=== PATIENT | female | born 1965 | race Caucasian/White ===

== ENCOUNTER 2017-11-05 08:47 | Emergency (ER) | payer OTHER ==
[2017-11-05] MEDS: OXYCODONE/ACETAMINOPHEN (5/325) TAB PO (10:01)
[2017-11-05 10:32] LABS: ADD MAN DIFF? NO
[2017-11-05 10:43] LABS: WHITE BLOOD COUNT 4.8 10^3/ul (4.8-10.8)
[2017-11-05 10:43] LABS: BASOPHIL # 0.1 10^3/ul (0.0-0.1); EOSINOPHILS # 0.1 10^3/ul (0.0-0.5); EOSINOPHILS % 2.9 % (0.0-7.0); HEMATOCRIT 40.6 % (37.0-47.0); HEMOGLOBIN 12.3 g/dl (12.0-16.0); LYMPHOCYTES # 1.2 10^3/ul (0.8-2.9); LYMPHOCYTES % 24.2 % (15.0-51.0); MEAN CORPUSCULAR HEMOGLOBIN 26.1 pg (29.0-33.0); MEAN CORPUSCULAR HGB CONC 30.3 g/dl (32.0-37.0); MEAN CORPUSCULAR VOLUME 86.2 fl (82.0-101.0); MEAN PLATELET VOLUME 11.2 fl (7.4-10.4); MONOCYTE # 0.7 10^3/ul (0.3-0.9); MONOCYTES % 13.4 % (0.0-11.0); NEUTROPHIL # 2.8 10^3/ul (1.6-7.5); NEUTROPHILS % 57.7 % (39.0-77.0); PLATELET COUNT 681 10^3/UL (140-415); RED BLOOD COUNT 4.71 10^6/ul (4.20-5.40); RED CELL DISTRIBUTION WIDTH 18.1 % (11.5-14.5)
[2017-11-05 10:48] LABS: ADD UMIC YES; UR ASCORBIC ACID 40 mg/dL (NEGATIVE); UR BACTERIA FEW /HPF (NONE SEEN); UR BILIRUBIN (Dip) NEGATIVE (NEGATIVE); UR BLOOD (Dip) 3+ mg/dL (NEGATIVE); UR CALCIUM OXALATE CRYSTAL MANY /HPF (NONE SEEN); UR CLARITY CLOUDY (CLEAR); UR COLOR YELLOW (YELLOW); UR GLUCOSE (Dip) NEGATIVE (NEGATIVE); UR KETONES (Dip) NEGATIVE (NEGATIVE); UR LEUKOCYTE ESTERASE (Dip) 3+ Leu/ul (NEGATIVE); UR NITRITE (Dip) NEGATIVE (NEGATIVE); UR RBC > 182 /HPF (0-5); UR SPECIFIC GRAVITY (Dip) 1.014 (1.003-1.030); UR TOTAL PROTEIN (Dip) 2+ mg/dl (NEGATIVE); UR UROBILINOGEN (Dip) NEGATIVE (NEGATIVE); UR WBC > 182 /HPF (0-5)
[2017-11-05 10:53] LABS: ALANINE AMINOTRANSFERASE 56 IU/L (13-69); ALBUMIN 4.2 g/dl (3.3-4.9); ALKALINE PHOSPHATASE 111 IU/L (42-121); ANION GAP 15 (8-16); ASPARTATE AMINO TRANSFERASE 32 IU/L (15-46); BLOOD UREA NITROGEN 17 mg/dl (7-20); CALCIUM 9.8 mg/dl (8.4-10.2); CARBON DIOXIDE 30 mmol/L (21-31); CHLORIDE 102 mmol/L (97-110); CREATININE 0.69 mg/dl (0.44-1.00); GLUCOSE 77 mg/dl (70-220); LIPASE 177 U/L (23-300); POTASSIUM 5.2 mmol/L (3.5-5.1); SODIUM 142 mmol/L (135-144)
[2017-11-05] MEDS: CEFTRIAXONE 1 GM INJ IM (11:04)
== END 2017-11-05 11:29 | disposition home or self-care (01) ==
LOC: E/R 08:47
DX: N30.01 Acute cystitis with hematuria (principal); C56.9 Malignant neoplasm of unspecified ovary; I26.99 Other pulmonary embolism without acute cor pulmonale; Y73.2 Prosthetic and other implants, materials and accessory gastroenterology and urology devices associated with adverse incidents; Z79.01 Long term (current) use of anticoagulants
CPT/HCPCS: 36415; 80053; 81001; 83690; 85025; 96372; 99284-25

== ENCOUNTER 2017-12-14 10:37 | Emergency (ER) | payer SELFPAY, OTHER | END 2017-12-14 17:26 | disposition left against medical advice (07) | LOC: E/R 10:37 | DX: Z53.21 Procedure and treatment not carried out due to patient leaving prior to being seen by health care provider (principal) ==

== ENCOUNTER 2017-12-15 07:07 | Observation (INO) | payer OTHER ==
[2017-12-15] MEDS: ONDANSETRON 4 MG INJ IV ×2 (10:08→16:08)
[2017-12-15] MEDS: morphine 4 MG/ML VIAL IV (10:09)
[2017-12-15] MEDS: SOD CHLORIDE 0.9% 1,000 ML IV (10:09)
[2017-12-15 10:37] LABS: ADD MAN DIFF? NO
[2017-12-15 10:40] LABS: BASOPHILS % 0.5 % (0.0-2.0); EOSINOPHILS # 0.1 10^3/ul (0.0-0.5); EOSINOPHILS % 1.7 % (0.0-7.0); HEMATOCRIT 35.5 % (37.0-47.0); HEMOGLOBIN 11.2 g/dl (12.0-16.0); LYMPHOCYTES # 0.9 10^3/ul (0.8-2.9); LYMPHOCYTES % 14.7 % (15.0-51.0); MEAN CORPUSCULAR HEMOGLOBIN 26.1 pg (29.0-33.0); MEAN CORPUSCULAR HGB CONC 31.5 g/dl (32.0-37.0); MEAN CORPUSCULAR VOLUME 82.8 fl (82.0-101.0); MEAN PLATELET VOLUME 11.8 fl (7.4-10.4); MONOCYTE # 0.8 10^3/ul (0.3-0.9); MONOCYTES % 13.4 % (0.0-11.0); NEUTROPHIL # 4.1 10^3/ul (1.6-7.5); PLATELET COUNT 602 10^3/UL (140-415); RED BLOOD COUNT 4.29 10^6/ul (4.20-5.40); RED CELL DISTRIBUTION WIDTH 16.9 % (11.5-14.5)
[2017-12-15 10:57] LABS: ALANINE AMINOTRANSFERASE 65 IU/L (13-69); ALBUMIN 3.7 g/dl (3.3-4.9); ALBUMIN/GLOBULIN RATIO 1.02; ALKALINE PHOSPHATASE 112 IU/L (42-121); AMYLASE 91 U/L (11-123); ANION GAP 13 (8-16); ASPARTATE AMINO TRANSFERASE 37 IU/L (15-46); BLOOD UREA NITROGEN 17 mg/dl (7-20); CALCIUM 9.4 mg/dl (8.4-10.2); CARBON DIOXIDE 28 mmol/L (21-31); CHLORIDE 106 mmol/L (97-110); CREATININE 0.81 mg/dl (0.44-1.00); GLUCOSE 91 mg/dl (70-220); LIPASE 120 U/L (23-300); POTASSIUM 4.5 mmol/L (3.5-5.1); SODIUM 142 mmol/L (135-144); TOTAL PROTEIN 7.3 g/dl (6.1-8.1)
[2017-12-15 10:59] LABS: INR 0.82; PROTIME 11.3 Sec (11.9-14.9); PT RATIO 0.9
[2017-12-15 11:00] LABS: PARTIAL THROMBOPLASTIN TIME 27.1 Sec (25.0-35.0)
[2017-12-15 11:16] LABS: TROPONIN-I < 0.012 ng/ml (0.00-0.12)
[2017-12-15] MEDS: IOHEXOL 300MG/ML 150 ML BTL (11:48)
[2017-12-15] MEDS: SOD CHLORIDE 0.9% 250 ML (11:49)
[2017-12-15] MEDS: IOHEXOL 100 ML (14:52)
[2017-12-15] MEDS: SOD CHLORIDE 0.9% 100 ML (14:52)
[2017-12-15] MEDS ORDERED: ONDANSETRON 4 MG INJ IV ×2 (16:00→18:00)
[2017-12-15] MEDS ORDERED: ACETAMINOPHEN 325 MG TAB PO ×2 (16:00→18:00)
[2017-12-15 16:06] LABS: ADD UMIC YES; UR ASCORBIC ACID NEGATIVE (NEGATIVE); UR BACTERIA MODERATE /HPF (NONE SEEN); UR BILIRUBIN (Dip) NEGATIVE (NEGATIVE); UR BLOOD (Dip) 3+ mg/dL (NEGATIVE); UR CLARITY CLOUDY (CLEAR); UR COLOR YELLOW (YELLOW); UR GLUCOSE (Dip) NEGATIVE (NEGATIVE); UR KETONES (Dip) NEGATIVE (NEGATIVE); UR LEUKOCYTE ESTERASE (Dip) 3+ Leu/ul (NEGATIVE); UR MUCUS FEW /HPF (NONE SEEN); UR NITRITE (Dip) NEGATIVE (NEGATIVE); UR RBC > 182 /HPF (0-5); UR SPECIFIC GRAVITY (Dip) 1.055 (1.003-1.030); UR TOTAL PROTEIN (Dip) 2+ mg/dl (NEGATIVE); UR UROBILINOGEN (Dip) NEGATIVE (NEGATIVE); UR WBC > 182 /HPF (0-5)
[2017-12-15] MEDS: HYDROmorphONE 1 MG/ML SYG IV (16:08)
[2017-12-15] MEDS ORDERED: NACL 0.9% 3 ML SYG IV (18:00)
[2017-12-15] MEDS ORDERED: ZOLPIDEM 5 MG TAB PO (18:00)
[2017-12-15] MEDS: CEFTRIAXONE 1 GM/50 ML (PMX) 50 ML IVPB (18:43)
[2017-12-15] MEDS: APIXABAN 5 MG TABLET PO (21:41)
[2017-12-16] MEDS: morphine 2 MG INJ IV ×2 (04:34→08:44)
[2017-12-16 05:30] LABS: ADD MAN DIFF? NO
[2017-12-16 05:42] LABS: WHITE BLOOD COUNT 6.5 10^3/ul (4.8-10.8)
[2017-12-16 05:42] LABS: BASOPHILS % 0.6 % (0.0-2.0); EOSINOPHILS # 0.1 10^3/ul (0.0-0.5); EOSINOPHILS % 1.2 % (0.0-7.0); HEMATOCRIT 32.7 % (37.0-47.0); HEMOGLOBIN 10.2 g/dl (12.0-16.0); LYMPHOCYTES # 0.8 10^3/ul (0.8-2.9); LYMPHOCYTES % 12.3 % (15.0-51.0); MEAN CORPUSCULAR HEMOGLOBIN 25.8 pg (29.0-33.0); MEAN CORPUSCULAR HGB CONC 31.2 g/dl (32.0-37.0); MEAN CORPUSCULAR VOLUME 82.8 fl (82.0-101.0); MEAN PLATELET VOLUME 11.8 fl (7.4-10.4); MONOCYTE # 0.8 10^3/ul (0.3-0.9); MONOCYTES % 12.1 % (0.0-11.0); NEUTROPHIL # 4.8 10^3/ul (1.6-7.5); PLATELET COUNT 556 10^3/UL (140-415); RED BLOOD COUNT 3.95 10^6/ul (4.20-5.40); RED CELL DISTRIBUTION WIDTH 16.9 % (11.5-14.5)
[2017-12-16] MEDS: PANTOPRAZOLE (EC) 40 MG TAB PO (05:46)
[2017-12-16] MEDS: MAGNESIUM HYDROXIDE 30ML CUP PO (05:46)
[2017-12-16] MEDS: DOCUSATE SODIUM 100 MG CAP PO (05:47)
[2017-12-16 06:43] LABS: ANION GAP 13 (8-16)
[2017-12-16 07:03] LABS: BLOOD UREA NITROGEN 14 mg/dl (7-20); CALCIUM 9.2 mg/dl (8.4-10.2); CARBON DIOXIDE 27 mmol/L (21-31); CHLORIDE 106 mmol/L (97-110); CREATININE 0.76 mg/dl (0.44-1.00); GLUCOSE 69 mg/dl (70-220); MAGNESIUM 1.6 mg/dl (1.7-2.5); PHOSPHORUS 4.5 mg/dl (2.5-4.9); POTASSIUM 4.5 mmol/L (3.5-5.1); SODIUM 141 mmol/L (135-144)
[2017-12-16] MEDS: QUETIAPINE 25 MG TAB PO (08:42)
[2017-12-16] MEDS: APIXABAN 5 MG TABLET PO (08:42)
[2017-12-16] MEDS: MAGNESIUM OXIDE 400 MG TAB PO (10:39)
[2017-12-16] MEDS: HYDROCODONE/APAP (5/325) TAB PO (10:45)
== END 2017-12-16 13:50 | disposition home or self-care (01) ==
LOC: E/R 07:07 → MS1 15:56
DX: C56.9 Malignant neoplasm of unspecified ovary (principal); C78.6 Secondary malignant neoplasm of retroperitoneum and peritoneum; R10.9 Unspecified abdominal pain; K80.20 Calculus of gallbladder without cholecystitis without obstruction; N13.30 Unspecified hydronephrosis; Z86.711 Personal history of pulmonary embolism; Z86.61 Personal history of infections of the central nervous system
CPT/HCPCS: 71260; 71275; 74177; 76705; 80048; 80053; 81001; 82150; 83690; 83735; 84100; 84484; 85025; 85610; 85730; 87040; 87086; 93005; 96374; 96375; 96376; 99285-25

== ENCOUNTER 2018-02-24 08:04 | Inpatient (IN) | payer OTHER ==
[2018-02-24] MEDS: SODIUM CHLORIDE 0.9% 1L BAG IV* (08:52)
[2018-02-24] MEDS: CEFEPIME 2GM/50 ML (PMX) 50 ML IVPB (08:52)
[2018-02-24 08:59] LABS: WHITE BLOOD COUNT 9.6 10^3/ul (4.8-10.8)
[2018-02-24 08:59] LABS: HEMOGLOBIN 13.4 g/dl (12.0-16.0); MEAN CORPUSCULAR HEMOGLOBIN 25.5 pg (29.0-33.0); MEAN CORPUSCULAR HGB CONC 32.7 g/dl (32.0-37.0); MEAN CORPUSCULAR VOLUME 77.9 fl (82.0-101.0); NUCLEATED RED BLOOD CELLS% 0.5 /100WBC (0.0-0.0); PLATELET COUNT 315 10^3/UL (140-415); RED BLOOD COUNT 5.26 10^6/ul (4.20-5.40); RED CELL DISTRIBUTION WIDTH 19.3 % (11.5-14.5)
[2018-02-24 09:05] LABS: ADD MAN DIFF? YES; POSITIVE DIFF @See below
[2018-02-24] MEDS: PANTOPRAZOLE IV 80 MG in SOD CHLORIDE 0.9% 100 ML IV (09:14)
[2018-02-24] MEDS: PANTOPRAZOLE IV 80 MG in SOD CHLORIDE 0.9% 100 ML IVPB (09:14)
[2018-02-24 09:18] LABS: ALANINE AMINOTRANSFERASE 604 IU/L (13-69); ALBUMIN 4.4 g/dl (3.3-4.9); ALBUMIN/GLOBULIN RATIO 0.97; ALKALINE PHOSPHATASE 427 IU/L (42-121); ANION GAP 20 (8-16); ASPARTATE AMINO TRANSFERASE 410 IU/L (15-46); BILIRUBIN,INDIRECT 0.3 mg/dl (0-1.1); BILIRUBIN,TOTAL 0.3 mg/dl (0.2-1.3); BLOOD UREA NITROGEN 116 mg/dl (7-20); CALCIUM 8.9 mg/dl (8.4-10.2); CARBON DIOXIDE 26 mmol/L (21-31); CHLORIDE 101 mmol/L (97-110); CREATININE 0.93 mg/dl (0.44-1.00); SODIUM 139 mmol/L (135-144); TOTAL PROTEIN 8.9 g/dl (6.1-8.1)
[2018-02-24 09:25] LABS: ADD UMIC YES; POTASSIUM 8.2 mmol/L (3.5-5.1); UR AMORPHOUS CRYSTAL FEW /HPF (NONE SEEN); UR ASCORBIC ACID 20 mg/dL (NEGATIVE); UR BACTERIA FEW /HPF (NONE SEEN); UR BILIRUBIN (Dip) NEGATIVE (NEGATIVE); UR BLOOD (Dip) 3+ mg/dL (NEGATIVE); UR CLARITY CLOUDY (CLEAR); UR COLOR YELLOW (YELLOW); UR GLUCOSE (Dip) NEGATIVE (NEGATIVE); UR KETONES (Dip) NEGATIVE (NEGATIVE); UR LEUKOCYTE ESTERASE (Dip) 3+ Leu/ul (NEGATIVE); UR MUCUS FEW /HPF (NONE SEEN); UR NITRITE (Dip) NEGATIVE (NEGATIVE); UR RBC > 182 /HPF (0-5); UR SPECIFIC GRAVITY (Dip) 1.013 (1.003-1.030); UR TOTAL PROTEIN (Dip) 1+ mg/dl (NEGATIVE); UR UROBILINOGEN (Dip) NEGATIVE (NEGATIVE); UR WBC > 182 /HPF (0-5)
[2018-02-24 09:26] LABS: GLUCOSE 21 mg/dl (70-220)
[2018-02-24] MEDS ORDERED: DEXTROSE 50% 50 ML SYRINGE (09:28)
[2018-02-24 09:29] LABS: TROPONIN-I 0.029 ng/ml (0.00-0.12)
[2018-02-24] MEDS: VANCOMYCIN 1 GM (PMX) 250 ML IVPB (09:31)
[2018-02-24 09:50] LABS: ANISOCYTOSIS 2+ (0-0); BAND NEUTROPHILS #M 2.7 10^3/ul (0.0-0.6); BAND NEUTROPHILS % (M) 29 % (0-4); ERYTHROBLAST% (NRBC) (M) 2 % (0-0); GIANT THROMBO% (M) 3 % (0-0); LYMPHOCYTES #M 0.9 10^3/ul (0.8-2.9); LYMPHOCYTES % (M) 10 % (15-51); METAMYELOCYTES %M 1 % (0-0); MONOCYTE #M 0.3 10^3/ul (0.3-0.9); MONOCYTES % (M) 4 % (0-11); MYELOCYTES #M 0.1 10^3/ul (0.0-0.0); MYELOCYTES % (M) 2 % (0-0); PLATELET ESTIMATE NORMAL; POIKILOCYTOSIS 3+ (0-0); POLYCHROMASIA 3+ (0-0); SEG NEUT #M 5.4 10^3/ul (1.6-7.5); SEGMENTED NEUTROPHILS (M) % 54 % (39-77)
[2018-02-24 09:53] LABS: AMMONIA < 9 umol/l (9-30)
[2018-02-24 10:33] LABS: INR 1.02; PROTIME 13.5 Sec (11.9-14.9); PT RATIO 1.1
[2018-02-24 10:34] LABS: PARTIAL THROMBOPLASTIN TIME 25.2 Sec (25.0-35.0)
[2018-02-24] MEDS: ONDANSETRON 4 MG INJ IV (11:24)
[2018-02-24] MEDS: morphine 4 MG/ML VIAL IV (11:26)
[2018-02-24] MEDS: DEXTROSE 50% 50 ML SYRINGE IV ×3 (11:36→19:09)
[2018-02-24 13:23] LABS: LACTIC ACID 1.5 mmol/L (0.5-2.0)
[2018-02-24 13:30] LABS: ANION GAP 17 (8-16); BLOOD UREA NITROGEN 111 mg/dl (7-20); CARBON DIOXIDE 22 mmol/L (21-31); CHLORIDE 108 mmol/L (97-110); CREATININE 0.82 mg/dl (0.44-1.00); POTASSIUM 5.8 mmol/L (3.5-5.1); SODIUM 141 mmol/L (135-144)
[2018-02-24 13:33] LABS: GLUCOSE 36 mg/dl (70-220)
[2018-02-24] MEDS: NA POLYST SULFON 15 GM/60 ML BTL PO ×3 (13:36→23:04)
[2018-02-24] MEDS: DEXTROSE 5%-0.45% NACL 1,000 ML IV ×4 (13:41→22:50)
[2018-02-24] MEDS: NA BICARBONATE 8.4% 50 ML SYG IV (13:48)
[2018-02-24] MEDS ORDERED: ONDANSETRON 4 MG INJ IV ×2 (14:00→15:00)
[2018-02-24] MEDS ORDERED: ACETAMINOPHEN 325 MG TAB PO ×2 (14:00→15:00)
[2018-02-24] MEDS ORDERED: NACL 0.9% 3 ML SYG IV (15:00)
[2018-02-24] MEDS: FAMOTIDINE 20 MG INJ IV (22:51)
[2018-02-24] MEDS: morphine 2 MG INJ IV (22:54)
[2018-02-25] MEDS: DEXTROSE 5%-0.45% NACL 1,000 ML IV ×3 (00:38→21:05)
[2018-02-25 06:51] LABS: ADD MAN DIFF? NO
[2018-02-25 06:58] LABS: ABNORMAL IP MESSAGE 1; BASOPHILS % 0.1 % (0.0-2.0); HEMATOCRIT 32.5 % (37.0-47.0); LYMPHOCYTES # 0.5 10^3/ul (0.8-2.9); LYMPHOCYTES % 7.4 % (15.0-51.0); MEAN CORPUSCULAR HEMOGLOBIN 25.8 pg (29.0-33.0); MEAN CORPUSCULAR HGB CONC 33.8 g/dl (32.0-37.0); MEAN CORPUSCULAR VOLUME 76.1 fl (82.0-101.0); MEAN PLATELET VOLUME 11.2 fl (7.4-10.4); MONOCYTE # 0.6 10^3/ul (0.3-0.9); NEUTROPHIL # 5.7 10^3/ul (1.6-7.5); NEUTROPHILS % 81.5 % (39.0-77.0); NUCLEATED RED BLOOD CELLS # 0.1 10^3/ul (0.0-0.0); NUCLEATED RED BLOOD CELLS% 0.7 /100WBC (0.0-0.0); PLATELET COUNT 302 10^3/UL (140-415); RED BLOOD COUNT 4.27 10^6/ul (4.20-5.40); RED CELL DISTRIBUTION WIDTH 18.6 % (11.5-14.5)
[2018-02-25 07:10] LABS: POSITIVE DIFF @See below
[2018-02-25] MEDS: DEXTROSE 50% 50 ML SYRINGE IV ×3 (07:12→21:18)
[2018-02-25 07:27] LABS: ALANINE AMINOTRANSFERASE 576 IU/L (13-69); ALBUMIN/GLOBULIN RATIO 0.96; ALKALINE PHOSPHATASE 373 IU/L (42-121); ANION GAP 16 (8-16); ASPARTATE AMINO TRANSFERASE 294 IU/L (15-46); BILIRUBIN,INDIRECT 0.2 mg/dl (0-1.1); BILIRUBIN,TOTAL 0.2 mg/dl (0.2-1.3); BLOOD UREA NITROGEN 101 mg/dl (7-20); CALCIUM 7.7 mg/dl (8.4-10.2); CARBON DIOXIDE 25 mmol/L (21-31); CHLORIDE 107 mmol/L (97-110); CREATININE 1.21 mg/dl (0.44-1.00); POTASSIUM 5.2 mmol/L (3.5-5.1); SODIUM 143 mmol/L (135-144); TOTAL PROTEIN 6.1 g/dl (6.1-8.1)
[2018-02-25 07:36] LABS: GLUCOSE 28 mg/dl (70-220)
[2018-02-25 08:20] LABS: GLUCOSE 131 mg/dl (70-220)
[2018-02-25] MEDS: FAMOTIDINE 20 MG INJ IV ×2 (09:28→21:05)
[2018-02-25] MEDS: ENOXAPARIN 30 MG/0.3 ML SYG SC (09:29)
[2018-02-25 09:33] LABS: ANISOCYTOSIS 2+ (0-0); BAND NEUTROPHILS #M 2.5 10^3/ul (0.0-0.6); BAND NEUTROPHILS % (M) 36 % (0-4); BURR CELLS 2+ (0-0); EOSINOPHILS % (M) 2 % (0-7); ERYTHROBLAST% (NRBC) (M) 2 % (0-0); GIANT THROMBO% (M) 2 % (0-0); HYPOCHROMASIA 1+ (0-0); LYMPHOCYTES #M 0.6 10^3/ul (0.8-2.9); LYMPHOCYTES % (M) 9 % (15-51); MONOCYTE #M 0.6 10^3/ul (0.3-0.9); MONOCYTES % (M) 9 % (0-11); PLATELET ESTIMATE NORMAL; POIKILOCYTOSIS 2+ (0-0); POLYCHROMASIA 2+ (0-0); SEG NEUT #M 3.3 10^3/ul (1.6-7.5); SEGMENTED NEUTROPHILS (M) % 44 % (39-77); SMUDGE%M 12 % (0-0)
[2018-02-25 13:29] LABS: POTASSIUM 5.5 mmol/L (3.5-5.1)
[2018-02-25] MEDS: NA POLYST SULFON 15 GM/60 ML BTL PO (14:08)
[2018-02-25] MEDS: ACCU-CHEK XX (17:35)
[2018-02-25 20:53] LABS: GLUCOSE 71 mg/dl (70-220)
[2018-02-25] MEDS: DEXTROSE 10% 1,000 ML IV (22:04)
[2018-02-26] MEDS ORDERED: ACCU-CHEK XX (02:00)
[2018-02-26] MEDS: morphine 2 MG INJ IV ×2 (04:43→13:56)
[2018-02-26] MEDS: PANTOPRAZOLE (EC) 40 MG TAB PO (06:13)
[2018-02-26] MEDS: ACCU-CHEK XX ×3 (07:30→17:12)
[2018-02-26] MEDS: DEXTROSE 10% 1,000 ML IV ×3 (09:08→23:08)
[2018-02-26] MEDS: FAMOTIDINE 20 MG INJ IV ×2 (09:08→22:05)
[2018-02-26] MEDS: ENOXAPARIN 30 MG/0.3 ML SYG SC (09:13)
[2018-02-26 09:45] LABS: ADD MAN DIFF? NO
[2018-02-26 09:50] LABS: ABNORMAL IP MESSAGE 1; HEMATOCRIT 34.4 % (37.0-47.0); HEMOGLOBIN 11.3 g/dl (12.0-16.0); MEAN CORPUSCULAR HEMOGLOBIN 25.6 pg (29.0-33.0); MEAN CORPUSCULAR HGB CONC 32.8 g/dl (32.0-37.0); MEAN PLATELET VOLUME 11.7 fl (7.4-10.4); NUCLEATED RED BLOOD CELLS% 1.7 /100WBC (0.0-0.0); PLATELET COUNT 278 10^3/UL (140-415); RED BLOOD COUNT 4.41 10^6/ul (4.20-5.40); RED CELL DISTRIBUTION WIDTH 19.1 % (11.5-14.5)
[2018-02-26 09:50] LABS: WHITE BLOOD COUNT 5.8 10^3/ul (4.8-10.8)
[2018-02-26 09:54] LABS: POSITIVE DIFF @See below
[2018-02-26 10:14] LABS: ANION GAP 16 (8-16); BLOOD UREA NITROGEN 74 mg/dl (7-20); CALCIUM 7.8 mg/dl (8.4-10.2); CARBON DIOXIDE 24 mmol/L (21-31); CHLORIDE 106 mmol/L (97-110); CREATININE 1.01 mg/dl (0.44-1.00); GLUCOSE 63 mg/dl (70-220); POTASSIUM 3.9 mmol/L (3.5-5.1); SODIUM 142 mmol/L (135-144)
[2018-02-26 10:47] LABS: ANISOCYTOSIS 2+ (0-0); BAND NEUTROPHILS #M 2.2 10^3/ul (0.0-0.6); BAND NEUTROPHILS % (M) 38 % (0-4); ERYTHROBLAST% (NRBC) (M) 3 % (0-0); LYMPHOCYTES #M 0.5 10^3/ul (0.8-2.9); LYMPHOCYTES % (M) 10 % (15-51); MONOCYTE #M 0.1 10^3/ul (0.3-0.9); MONOCYTES % (M) 3 % (0-11); MYELOCYTES % (M) 1 % (0-0); PLATELET ESTIMATE NORMAL; POIKILOCYTOSIS 3+ (0-0); POLYCHROMASIA 3+ (0-0); REACTIVE LYMPHOCYTES% (M) 1 % (0-0); SEG NEUT #M 2.9 10^3/ul (1.6-7.5); SEGMENTED NEUTROPHILS (M) % 47 % (39-77); SMUDGE%M 1 % (0-0)
[2018-02-26] MEDS: SOD CHLORIDE 0.9% 100 ML (11:51)
[2018-02-26] MEDS: IOHEXOL 300MG/ML 150 ML BTL (11:51)
[2018-02-26] MEDS: BARIUM SULF 2% 450 ML BTL (BERRY SMOOTHIE) PO (19:40)
[2018-02-26] MEDS: DEXTROSE 50% 50 ML SYRINGE IV (22:13)
[2018-02-27] MEDS: DEXTROSE 10% 1,000 ML IV ×3 (05:47→19:59)
[2018-02-27] MEDS: PANTOPRAZOLE (EC) 40 MG TAB PO (06:12)
[2018-02-27] MEDS: morphine 2 MG INJ IV (06:42)
[2018-02-27] MEDS: ACCU-CHEK XX ×3 (08:15→17:07)
[2018-02-27 08:50] LABS: ADD MAN DIFF? NO
[2018-02-27 08:53] LABS: WHITE BLOOD COUNT 5.6 10^3/ul (4.8-10.8)
[2018-02-27 08:53] LABS: ABNORMAL IP MESSAGE 1; EOSINOPHILS % 0.4 % (0.0-7.0); HEMATOCRIT 33.6 % (37.0-47.0); HEMOGLOBIN 11.3 g/dl (12.0-16.0); LYMPHOCYTES # 0.5 10^3/ul (0.8-2.9); MEAN CORPUSCULAR HGB CONC 33.6 g/dl (32.0-37.0); MEAN CORPUSCULAR VOLUME 77.2 fl (82.0-101.0); MEAN PLATELET VOLUME 11.4 fl (7.4-10.4); MONOCYTE # 0.4 10^3/ul (0.3-0.9); MONOCYTES % 6.5 % (0.0-11.0); NEUTROPHIL # 4.6 10^3/ul (1.6-7.5); NEUTROPHILS % 82.5 % (39.0-77.0); NUCLEATED RED BLOOD CELLS # 0.1 10^3/ul (0.0-0.0); NUCLEATED RED BLOOD CELLS% 1.4 /100WBC (0.0-0.0); PLATELET COUNT 216 10^3/UL (140-415); POSITIVE DIFF @See below; RED BLOOD COUNT 4.35 10^6/ul (4.20-5.40); RED CELL DISTRIBUTION WIDTH 18.9 % (11.5-14.5)
[2018-02-27] MEDS: FAMOTIDINE 20 MG INJ IV ×2 (08:55→21:22)
[2018-02-27] MEDS: ENOXAPARIN 30 MG/0.3 ML SYG SC (09:03)
[2018-02-27 09:17] LABS: ALANINE AMINOTRANSFERASE 592 IU/L (13-69); ALBUMIN 2.9 g/dl (3.3-4.9); ALKALINE PHOSPHATASE 354 IU/L (42-121); ANION GAP 17 (8-16); ASPARTATE AMINO TRANSFERASE 243 IU/L (15-46); BILIRUBIN,INDIRECT 0.3 mg/dl (0-1.1); BILIRUBIN,TOTAL 0.3 mg/dl (0.2-1.3); BLOOD UREA NITROGEN 50 mg/dl (7-20); CALCIUM 7.8 mg/dl (8.4-10.2); CARBON DIOXIDE 22 mmol/L (21-31); CHLORIDE 101 mmol/L (97-110); CREATININE 0.68 mg/dl (0.44-1.00); GLUCOSE 67 mg/dl (70-220); POTASSIUM 3.8 mmol/L (3.5-5.1); SODIUM 136 mmol/L (135-144); TOTAL PROTEIN 6.1 g/dl (6.1-8.1)
[2018-02-28] MEDS: DEXTROSE 10% 1,000 ML IV ×4 (02:05→22:10)
[2018-02-28] MEDS: PANTOPRAZOLE (EC) 40 MG TAB PO (05:42)
[2018-02-28 06:52] LABS: ADD MAN DIFF? NO
[2018-02-28 06:55] LABS: ABNORMAL IP MESSAGE 1; BASOPHILS % 0.5 % (0.0-2.0); EOSINOPHILS % 0.9 % (0.0-7.0); HEMOGLOBIN 11.6 g/dl (12.0-16.0); LYMPHOCYTES # 0.4 10^3/ul (0.8-2.9); LYMPHOCYTES % 10.1 % (15.0-51.0); MEAN CORPUSCULAR HEMOGLOBIN 25.8 pg (29.0-33.0); MEAN CORPUSCULAR HGB CONC 33.1 g/dl (32.0-37.0); MEAN CORPUSCULAR VOLUME 77.8 fl (82.0-101.0); MEAN PLATELET VOLUME 12.2 fl (7.4-10.4); MONOCYTE # 0.3 10^3/ul (0.3-0.9); MONOCYTES % 6.4 % (0.0-11.0); NEUTROPHIL # 3.4 10^3/ul (1.6-7.5); NEUTROPHILS % 78.9 % (39.0-77.0); NUCLEATED RED BLOOD CELLS # 0.1 10^3/ul (0.0-0.0); NUCLEATED RED BLOOD CELLS% 1.1 /100WBC (0.0-0.0); PLATELET COUNT 278 10^3/UL (140-415); RED CELL DISTRIBUTION WIDTH 18.8 % (11.5-14.5)
[2018-02-28 06:55] LABS: WHITE BLOOD COUNT 4.4 10^3/ul (4.8-10.8)
[2018-02-28 06:58] LABS: POSITIVE DIFF @See below
[2018-02-28 07:19] LABS: BLOOD UREA NITROGEN 29 mg/dl (7-20); CALCIUM 7.8 mg/dl (8.4-10.2); CARBON DIOXIDE 24 mmol/L (21-31); CHLORIDE 101 mmol/L (97-110); CREATININE 0.57 mg/dl (0.44-1.00); GLUCOSE 101 mg/dl (70-220); SODIUM 137 mmol/L (135-144)
[2018-02-28] MEDS: ACCU-CHEK XX ×3 (07:30→17:11)
[2018-02-28 07:35] LABS: POTASSIUM 2.9 mmol/L (3.5-5.1)
[2018-02-28 07:36] LABS: ANION GAP 15 (8-16)
[2018-02-28] MEDS: DEXTROSE 50% 50 ML SYRINGE IV (08:56)
[2018-02-28] MEDS: FAMOTIDINE 20 MG INJ IV ×2 (09:00→21:58)
[2018-02-28] MEDS: ENOXAPARIN 30 MG/0.3 ML SYG SC (09:03)
[2018-02-28] MEDS: POTASSIUM CHLORIDE 100 ML IVPB ×2 (09:34→13:11)
[2018-02-28] MEDS: METHYLPREDNISOLONE 125 MG INJ IV (13:11)
[2018-02-28 17:13] LABS: LIPASE 62 U/L (23-300)
[2018-02-28 17:15] LABS: ANION GAP 13 (8-16); BLOOD UREA NITROGEN 29 mg/dl (7-20); CALCIUM 7.9 mg/dl (8.4-10.2); CARBON DIOXIDE 25 mmol/L (21-31); CHLORIDE 105 mmol/L (97-110); CREATININE 0.57 mg/dl (0.44-1.00); GLUCOSE 116 mg/dl (70-220); POTASSIUM 4.5 mmol/L (3.5-5.1); SODIUM 138 mmol/L (135-144)
[2018-02-28] MEDS: DIGOXIN 500 MCG INJ IV (21:58)
[2018-02-28] MEDS: morphine 2 MG INJ IV (22:24)
[2018-03-01] MEDS: PANTOPRAZOLE (EC) 40 MG TAB PO (05:06)
[2018-03-01] MEDS: DEXTROSE 10% 1,000 ML IV ×4 (05:06→21:46)
[2018-03-01] MEDS: ACCU-CHEK XX ×3 (07:55→18:24)
[2018-03-01 08:44] LABS: ADD MAN DIFF? NO
[2018-03-01 08:47] LABS: WHITE BLOOD COUNT 5.3 10^3/ul (4.8-10.8)
[2018-03-01 08:47] LABS: ABNORMAL IP MESSAGE 1; BASOPHILS % 0.2 % (0.0-2.0); EOSINOPHILS % 0.2 % (0.0-7.0); HEMATOCRIT 34.1 % (37.0-47.0); HEMOGLOBIN 11.1 g/dl (12.0-16.0); LYMPHOCYTES # 0.6 10^3/ul (0.8-2.9); LYMPHOCYTES % 10.8 % (15.0-51.0); MEAN CORPUSCULAR HEMOGLOBIN 25.7 pg (29.0-33.0); MEAN CORPUSCULAR HGB CONC 32.6 g/dl (32.0-37.0); MEAN CORPUSCULAR VOLUME 78.9 fl (82.0-101.0); MEAN PLATELET VOLUME 12.3 fl (7.4-10.4); MONOCYTE # 0.4 10^3/ul (0.3-0.9); NEUTROPHIL # 4.2 10^3/ul (1.6-7.5); NEUTROPHILS % 79.7 % (39.0-77.0); PLATELET COUNT 289 10^3/UL (140-415); RED BLOOD COUNT 4.32 10^6/ul (4.20-5.40); RED CELL DISTRIBUTION WIDTH 19.3 % (11.5-14.5)
[2018-03-01] MEDS: FAMOTIDINE 20 MG INJ IV ×2 (08:49→20:28)
[2018-03-01] MEDS: ENOXAPARIN 30 MG/0.3 ML SYG SC (08:52)
[2018-03-01 09:16] LABS: ANION GAP 10 (8-16); BLOOD UREA NITROGEN 21 mg/dl (7-20); CALCIUM 8.1 mg/dl (8.4-10.2); CARBON DIOXIDE 29 mmol/L (21-31); CHLORIDE 103 mmol/L (97-110); CREATININE 0.55 mg/dl (0.44-1.00); GLUCOSE 114 mg/dl (70-220); POTASSIUM 3.9 mmol/L (3.5-5.1); SODIUM 138 mmol/L (135-144)
[2018-03-01] MEDS: SOD CHLORIDE 0.9% 250 ML IV (15:59)
[2018-03-01] MEDS ORDERED: ZOLPIDEM 5 MG TAB PO (17:30)
[2018-03-01] MEDS: LIDOCAINE 1% (MDV) 10 ML INJ (17:50)
[2018-03-01] MEDS: DEXTROSE 50% 50 ML SYRINGE IV (18:25)
[2018-03-01 18:33] LABS: FLD MN% 88.1 %; FLD PMN% 11.9 %; FLD RBC 25000 /uL; FLD WBC 228 /cmm
[2018-03-01 18:37] LABS: FLUID LD 816 U/L; FLUID TOTAL PROTEIN 2.7 g/dl; FLUID TYPE PLEURAL FLUID
[2018-03-01 18:39] LABS: FLUID GLUCOSE 71 mg/dl; FLUID TYPE PLEURAL FLUID
[2018-03-01 18:50] LABS: FLD TYPE PLEURAL
[2018-03-01 18:50] LABS: FLD CLARITY CLOUDY; FLD COLOR ORANGE
[2018-03-01] MEDS: ATENOLOL 25 MG TAB PO (20:29)
[2018-03-02] MEDS: DEXTROSE 10% 1,000 ML IV ×5 (01:18→16:27)
[2018-03-02] MEDS: PANTOPRAZOLE (EC) 40 MG TAB PO (05:28)
[2018-03-02 06:15] LABS: ADD MAN DIFF? NO
[2018-03-02 06:51] LABS: ANION GAP 12 (8-16); BLOOD UREA NITROGEN 14 mg/dl (7-20); CALCIUM 7.9 mg/dl (8.4-10.2); CARBON DIOXIDE 27 mmol/L (21-31); CHLORIDE 102 mmol/L (97-110); CREATININE 0.45 mg/dl (0.44-1.00); GLUCOSE 106 mg/dl (70-220); POTASSIUM 3.6 mmol/L (3.5-5.1); SODIUM 137 mmol/L (135-144)
[2018-03-02 07:28] LABS: WHITE BLOOD COUNT 4.3 10^3/ul (4.8-10.8)
[2018-03-02 07:28] LABS: ABNORMAL IP MESSAGE 1; BASOPHILS % 0.2 % (0.0-2.0); EOSINOPHILS # 0.1 10^3/ul (0.0-0.5); EOSINOPHILS % 1.4 % (0.0-7.0); HEMATOCRIT 34.1 % (37.0-47.0); LYMPHOCYTES # 0.6 10^3/ul (0.8-2.9); LYMPHOCYTES % 12.8 % (15.0-51.0); MEAN CORPUSCULAR HEMOGLOBIN 25.5 pg (29.0-33.0); MEAN CORPUSCULAR HGB CONC 32.3 g/dl (32.0-37.0); MEAN CORPUSCULAR VOLUME 79.1 fl (82.0-101.0); MEAN PLATELET VOLUME 12.8 fl (7.4-10.4); MONOCYTE # 0.3 10^3/ul (0.3-0.9); MONOCYTES % 7.2 % (0.0-11.0); NEUTROPHIL # 3.2 10^3/ul (1.6-7.5); NEUTROPHILS % 74.2 % (39.0-77.0); PLATELET COUNT 284 10^3/UL (140-415); RED BLOOD COUNT 4.31 10^6/ul (4.20-5.40); RED CELL DISTRIBUTION WIDTH 19.4 % (11.5-14.5)
[2018-03-02] MEDS: ACCU-CHEK XX ×3 (07:30→17:15)
[2018-03-02 07:31] LABS: POSITIVE DIFF @See below
[2018-03-02] MEDS: ATENOLOL 25 MG TAB PO ×2 (08:38→21:40)
[2018-03-02] MEDS: FAMOTIDINE 20 MG INJ IV ×2 (08:38→21:39)
[2018-03-02] MEDS: ENOXAPARIN 30 MG/0.3 ML SYG SC (08:44)
[2018-03-02] MEDS: morphine 2 MG INJ IV ×2 (10:13→16:25)
[2018-03-03] MEDS: DEXTROSE 10% 1,000 ML IV ×6 (00:19→23:39)
[2018-03-03] MEDS: PANTOPRAZOLE (EC) 40 MG TAB PO (06:02)
[2018-03-03 06:09] LABS: ADD MAN DIFF? NO
[2018-03-03 06:17] LABS: ABNORMAL IP MESSAGE 1; BASOPHILS % 0.2 % (0.0-2.0); EOSINOPHILS % 0.7 % (0.0-7.0); HEMATOCRIT 35.5 % (37.0-47.0); HEMOGLOBIN 11.2 g/dl (12.0-16.0); LYMPHOCYTES # 0.5 10^3/ul (0.8-2.9); LYMPHOCYTES % 12.2 % (15.0-51.0); MEAN CORPUSCULAR HEMOGLOBIN 25.1 pg (29.0-33.0); MEAN CORPUSCULAR HGB CONC 31.5 g/dl (32.0-37.0); MEAN CORPUSCULAR VOLUME 79.6 fl (82.0-101.0); MEAN PLATELET VOLUME 11.6 fl (7.4-10.4); MONOCYTE # 0.3 10^3/ul (0.3-0.9); MONOCYTES % 7.6 % (0.0-11.0); NEUTROPHIL # 3.1 10^3/ul (1.6-7.5); NEUTROPHILS % 72.2 % (39.0-77.0); PLATELET COUNT 303 10^3/UL (140-415); RED BLOOD COUNT 4.46 10^6/ul (4.20-5.40); RED CELL DISTRIBUTION WIDTH 19.6 % (11.5-14.5)
[2018-03-03 06:17] LABS: WHITE BLOOD COUNT 4.3 10^3/ul (4.8-10.8)
[2018-03-03 06:20] LABS: POSITIVE DIFF @See below
[2018-03-03 06:40] LABS: ANION GAP 11 (8-16); BLOOD UREA NITROGEN 14 mg/dl (7-20); CALCIUM 7.9 mg/dl (8.4-10.2); CARBON DIOXIDE 28 mmol/L (21-31); CHLORIDE 99 mmol/L (97-110); CREATININE 0.45 mg/dl (0.44-1.00); GLUCOSE 76 mg/dl (70-220); POTASSIUM 3.6 mmol/L (3.5-5.1); SODIUM 134 mmol/L (135-144)
[2018-03-03] MEDS: ACCU-CHEK XX ×3 (07:26→17:14)
[2018-03-03] MEDS: ATENOLOL 25 MG TAB PO (08:19)
[2018-03-03] MEDS: FAMOTIDINE 20 MG INJ IV ×2 (08:19→21:34)
[2018-03-03] MEDS: ENOXAPARIN 30 MG/0.3 ML SYG SC (08:20)
[2018-03-03] MEDS: SOD CHLORIDE 0.9% 500 ML IV (21:34)
[2018-03-04] MEDS: SOD CHLORIDE 0.9% 500 ML IV (01:09)
[2018-03-04] MEDS: DEXTROSE 10% 1,000 ML IV ×4 (05:25→20:08)
[2018-03-04] MEDS: NORepinephrine 8MG/250 ML (PMX 250 ML IV (05:38)
[2018-03-04 06:37] LABS: ABNORMAL IP MESSAGE 1; HEMATOCRIT 31.3 % (37.0-47.0); HEMOGLOBIN 10.1 g/dl (12.0-16.0); MEAN CORPUSCULAR HGB CONC 32.3 g/dl (32.0-37.0); MEAN CORPUSCULAR VOLUME 80.5 fl (82.0-101.0); MEAN PLATELET VOLUME 11.8 fl (7.4-10.4); PLATELET COUNT 296 10^3/UL (140-415); RED BLOOD COUNT 3.89 10^6/ul (4.20-5.40)
[2018-03-04 06:37] LABS: WHITE BLOOD COUNT 4.2 10^3/ul (4.8-10.8)
[2018-03-04 06:45] LABS: ADD MAN DIFF? YES; POSITIVE DIFF @See below
[2018-03-04] MEDS: PANTOPRAZOLE (EC) 40 MG TAB PO (06:50)
[2018-03-04] MEDS: ACCU-CHEK XX ×3 (06:58→17:01)
[2018-03-04 07:17] LABS: ANION GAP 11 (8-16); BLOOD UREA NITROGEN 10 mg/dl (7-20); CALCIUM 7.4 mg/dl (8.4-10.2); CARBON DIOXIDE 25 mmol/L (21-31); CHLORIDE 103 mmol/L (97-110); CREATININE 0.41 mg/dl (0.44-1.00); GLUCOSE 83 mg/dl (70-220); POTASSIUM 3.5 mmol/L (3.5-5.1); SODIUM 135 mmol/L (135-144)
[2018-03-04] MEDS: morphine 2 MG INJ IV (07:42)
[2018-03-04] MEDS: FAMOTIDINE 20 MG INJ IV ×2 (08:04→20:56)
[2018-03-04] MEDS: ENOXAPARIN 30 MG/0.3 ML SYG SC (08:05)
[2018-03-04 09:52] LABS: ANISOCYTOSIS 1+ (0-0); BAND NEUTROPHILS #M 0.5 10^3/ul (0.0-0.6); BAND NEUTROPHILS % (M) 12 % (0-4); GIANT THROMBO% (M) 3 % (0-0); LYMPHOCYTES #M 0.5 10^3/ul (0.8-2.9); LYMPHOCYTES % (M) 13 % (15-51); MICROCYTOSIS 1+ (0-0); MONOCYTE #M 0.5 10^3/ul (0.3-0.9); MONOCYTES % (M) 13 % (0-11); MYELOCYTES #M 0.1 10^3/ul (0.0-0.0); MYELOCYTES % (M) 3 % (0-0); PLATELET ESTIMATE NORMAL; POIKILOCYTOSIS 3+ (0-0); POLYCHROMASIA 3+ (0-0); REACTIVE LYMPHOCYTES% (M) 1 % (0-0); SEG NEUT #M 2.5 10^3/ul (1.6-7.5); SEGMENTED NEUTROPHILS (M) % 58 % (39-77); SMUDGE%M 2 % (0-0)
[2018-03-04] MEDS: LORAZEPAM 2 MG INJ IV (15:07)
[2018-03-04] MEDS: LIDOCAINE 1% (MPF) 5 ML VIAL SC (16:00)
[2018-03-05] MEDS: DEXTROSE 10% 1,000 ML IV ×6 (01:30→23:21)
[2018-03-05] MEDS: LORAZEPAM 2 MG INJ IV (03:14)
[2018-03-05 05:39] LABS: ADD MAN DIFF? NO
[2018-03-05 05:52] LABS: BASOPHILS % 0.2 % (0.0-2.0); EOSINOPHILS % 0.7 % (0.0-7.0); HEMATOCRIT 29.8 % (37.0-47.0); HEMOGLOBIN 9.5 g/dl (12.0-16.0); LYMPHOCYTES # 0.6 10^3/ul (0.8-2.9); LYMPHOCYTES % 13.2 % (15.0-51.0); MEAN CORPUSCULAR HEMOGLOBIN 25.3 pg (29.0-33.0); MEAN CORPUSCULAR HGB CONC 31.9 g/dl (32.0-37.0); MEAN CORPUSCULAR VOLUME 79.3 fl (82.0-101.0); MEAN PLATELET VOLUME 10.8 fl (7.4-10.4); MONOCYTE # 0.4 10^3/ul (0.3-0.9); MONOCYTES % 8.8 % (0.0-11.0); NEUTROPHIL # 3.3 10^3/ul (1.6-7.5); NEUTROPHILS % 72.3 % (39.0-77.0); PLATELET COUNT 280 10^3/UL (140-415); RED BLOOD COUNT 3.76 10^6/ul (4.20-5.40)
[2018-03-05 05:52] LABS: WHITE BLOOD COUNT 4.6 10^3/ul (4.8-10.8)
[2018-03-05] MEDS: PANTOPRAZOLE (EC) 40 MG TAB PO (06:00)
[2018-03-05 06:16] LABS: LACTIC ACID 5.5 mmol/L (0.5-2.0)
[2018-03-05 06:19] LABS: ANION GAP 9 (8-16); BLOOD UREA NITROGEN 7 mg/dl (7-20); CALCIUM 7.3 mg/dl (8.4-10.2); CARBON DIOXIDE 26 mmol/L (21-31); CHLORIDE 105 mmol/L (97-110); CREATININE 0.37 mg/dl (0.44-1.00); GLUCOSE 117 mg/dl (70-220); MAGNESIUM 1.1 mg/dl (1.7-2.5); PHOSPHORUS 0.9 mg/dl (2.5-4.9); POTASSIUM 3.5 mmol/L (3.5-5.1); SODIUM 136 mmol/L (135-144)
[2018-03-05] MEDS: NORepinephrine 8MG/250 ML (PMX 250 ML IV (07:10)
[2018-03-05] MEDS: ACCU-CHEK XX ×3 (07:58→17:05)
[2018-03-05] MEDS: FAMOTIDINE 20 MG INJ IV ×2 (09:06→21:25)
[2018-03-05] MEDS: ENOXAPARIN 30 MG/0.3 ML SYG SC (09:12)
[2018-03-05] MEDS: CASPOFUNGIN 50 MG in SOD CHLORIDE 0.9% 250 ML IVPB (16:55)
[2018-03-05] MEDS ORDERED: NORepinephrine 8MG/250 ML (PMX 250 ML (21:37)
[2018-03-06] MEDS: DEXTROSE 10% 1,000 ML IV ×4 (04:31→21:46)
[2018-03-06] MEDS: PANTOPRAZOLE (EC) 40 MG TAB PO (05:36)
[2018-03-06] MEDS: LORAZEPAM 2 MG INJ IV (05:37)
[2018-03-06 06:06] LABS: ADD MAN DIFF? NO
[2018-03-06 06:10] LABS: ABNORMAL IP MESSAGE 1; BASOPHILS % 0.2 % (0.0-2.0); EOSINOPHILS % 0.2 % (0.0-7.0); HEMOGLOBIN 9.5 g/dl (12.0-16.0); LYMPHOCYTES # 0.5 10^3/ul (0.8-2.9); LYMPHOCYTES % 10.6 % (15.0-51.0); MEAN CORPUSCULAR HEMOGLOBIN 25.9 pg (29.0-33.0); MEAN CORPUSCULAR HGB CONC 32.8 g/dl (32.0-37.0); MEAN PLATELET VOLUME 10.7 fl (7.4-10.4); MONOCYTE # 0.5 10^3/ul (0.3-0.9); MONOCYTES % 9.5 % (0.0-11.0); NEUTROPHIL # 3.7 10^3/ul (1.6-7.5); NEUTROPHILS % 76.4 % (39.0-77.0); PLATELET COUNT 241 10^3/UL (140-415); RED BLOOD COUNT 3.67 10^6/ul (4.20-5.40); RED CELL DISTRIBUTION WIDTH 18.4 % (11.5-14.5)
[2018-03-06 06:10] LABS: WHITE BLOOD COUNT 4.8 10^3/ul (4.8-10.8)
[2018-03-06 06:33] LABS: POSITIVE DIFF @See below
[2018-03-06 06:39] LABS: ANION GAP 9 (8-16); BLOOD UREA NITROGEN 5 mg/dl (7-20); CALCIUM 7.4 mg/dl (8.4-10.2); CARBON DIOXIDE 27 mmol/L (21-31); CHLORIDE 103 mmol/L (97-110); CREATININE 0.35 mg/dl (0.44-1.00); GLUCOSE 101 mg/dl (70-220); POTASSIUM 3.1 mmol/L (3.5-5.1); SODIUM 136 mmol/L (135-144)
[2018-03-06 06:40] LABS: LACTIC ACID 5.7 mmol/L (0.5-2.0)
[2018-03-06] MEDS: ACCU-CHEK XX ×3 (07:25→17:05)
[2018-03-06] MEDS: morphine 2 MG INJ IV ×5 (07:44→23:31)
[2018-03-06] MEDS: FAMOTIDINE 20 MG INJ IV ×2 (08:23→20:20)
[2018-03-06] MEDS: ENOXAPARIN 30 MG/0.3 ML SYG SC (08:28)
[2018-03-06] MEDS: POTASSIUM CHLORIDE 50 ML IVPB ×2 (10:14→14:18)
[2018-03-06 11:41] LABS: MAGNESIUM 1.2 mg/dl (1.7-2.5)
[2018-03-06] MEDS: CASPOFUNGIN 50 MG in SOD CHLORIDE 0.9% 250 ML IVPB (14:17)
[2018-03-06] MEDS: MAGNESIUM SULFATE 2 GM/50 ML 50 ML IVPB (16:41)
[2018-03-07] MEDS: DEXTROSE 10% 1,000 ML IV ×5 (01:48→22:43)
[2018-03-07] MEDS: PANTOPRAZOLE (EC) 40 MG TAB PO (05:18)
[2018-03-07 05:23] LABS: ADD MAN DIFF? NO
[2018-03-07 05:32] LABS: WHITE BLOOD COUNT 5.8 10^3/ul (4.8-10.8)
[2018-03-07 05:32] LABS: ABNORMAL IP MESSAGE 1; BASOPHILS % 0.3 % (0.0-2.0); EOSINOPHILS % 0.3 % (0.0-7.0); HEMOGLOBIN 9.2 g/dl (12.0-16.0); LYMPHOCYTES # 0.5 10^3/ul (0.8-2.9); LYMPHOCYTES % 7.9 % (15.0-51.0); MEAN CORPUSCULAR HEMOGLOBIN 26.1 pg (29.0-33.0); MEAN CORPUSCULAR HGB CONC 32.9 g/dl (32.0-37.0); MEAN CORPUSCULAR VOLUME 79.3 fl (82.0-101.0); MEAN PLATELET VOLUME 10.7 fl (7.4-10.4); MONOCYTE # 0.5 10^3/ul (0.3-0.9); MONOCYTES % 7.9 % (0.0-11.0); NEUTROPHIL # 4.7 10^3/ul (1.6-7.5); NEUTROPHILS % 80.3 % (39.0-77.0); NUCLEATED RED BLOOD CELLS% 0.3 /100WBC (0.0-0.0); PLATELET COUNT 214 10^3/UL (140-415); RED BLOOD COUNT 3.53 10^6/ul (4.20-5.40); RED CELL DISTRIBUTION WIDTH 18.7 % (11.5-14.5)
[2018-03-07 05:34] LABS: POSITIVE DIFF @See below
[2018-03-07 06:24] LABS: ANION GAP 14 (8-16); BLOOD UREA NITROGEN 5 mg/dl (7-20); CALCIUM 7.2 mg/dl (8.4-10.2); CARBON DIOXIDE 23 mmol/L (21-31); CHLORIDE 100 mmol/L (97-110); GLUCOSE 112 mg/dl (70-220); MAGNESIUM 1.4 mg/dl (1.7-2.5); PHOSPHORUS 0.6 mg/dl (2.5-4.9); POTASSIUM 3.5 mmol/L (3.5-5.1); SODIUM 133 mmol/L (135-144)
[2018-03-07] MEDS: ACCU-CHEK XX ×3 (06:28→16:30)
[2018-03-07] MEDS: morphine 2 MG INJ IV ×3 (06:31→17:18)
[2018-03-07] MEDS: ENOXAPARIN 30 MG/0.3 ML SYG SC (08:08)
[2018-03-07] MEDS: FAMOTIDINE 20 MG INJ IV ×2 (08:09→20:56)
[2018-03-07] MEDS: MEGESTROL (40 MG/ML) 10ML CUP PO (08:09)
[2018-03-07] MEDS: HYDROCORTISONE 100 MG INJ IV ×3 (09:26→22:38)
[2018-03-07] MEDS: LORAZEPAM 2 MG INJ IV (09:32)
[2018-03-07] MEDS: CASPOFUNGIN 50 MG in SOD CHLORIDE 0.9% 250 ML IVPB (14:06)
[2018-03-07] MEDS: MAGNESIUM SULFATE 1 GM/D5W 100 ML IVPB (17:18)
[2018-03-07] MEDS: POTASSIUM PHOSPHATE 20 MEQ in SOD CHLORIDE 0.9% 250 ML IVPB (20:05)
[2018-03-07] MEDS: BALSAM PERU/CASTOR OIL 60 GM TUBE TOP (20:58)
[2018-03-08] MEDS: DEXTROSE 10% 1,000 ML IV ×4 (03:43→17:54)
[2018-03-08] MEDS: LORAZEPAM 2 MG INJ IV ×2 (04:05→11:05)
[2018-03-08 05:04] LABS: ADD MAN DIFF? NO
[2018-03-08 05:08] LABS: WHITE BLOOD COUNT 7.3 10^3/ul (4.8-10.8)
[2018-03-08 05:08] LABS: ABNORMAL IP MESSAGE 1; BASOPHILS % 0.1 % (0.0-2.0); HEMATOCRIT 25.8 % (37.0-47.0); HEMOGLOBIN 8.7 g/dl (12.0-16.0); LYMPHOCYTES # 0.4 10^3/ul (0.8-2.9); LYMPHOCYTES % 5.2 % (15.0-51.0); MEAN CORPUSCULAR HEMOGLOBIN 26.4 pg (29.0-33.0); MEAN CORPUSCULAR HGB CONC 33.7 g/dl (32.0-37.0); MEAN CORPUSCULAR VOLUME 78.2 fl (82.0-101.0); MEAN PLATELET VOLUME 10.2 fl (7.4-10.4); MONOCYTE # 0.4 10^3/ul (0.3-0.9); MONOCYTES % 5.3 % (0.0-11.0); NEUTROPHIL # 6.4 10^3/ul (1.6-7.5); NEUTROPHILS % 87.8 % (39.0-77.0); NUCLEATED RED BLOOD CELLS% 0.3 /100WBC (0.0-0.0); PLATELET COUNT 152 10^3/UL (140-415); RED CELL DISTRIBUTION WIDTH 18.6 % (11.5-14.5)
[2018-03-08 05:19] LABS: POSITIVE DIFF @See below
[2018-03-08 05:38] LABS: ANION GAP 15 (8-16); BLOOD UREA NITROGEN 5 mg/dl (7-20); CARBON DIOXIDE 22 mmol/L (21-31); CHLORIDE 102 mmol/L (97-110); CREATININE 0.35 mg/dl (0.44-1.00); GLUCOSE 104 mg/dl (70-220); MAGNESIUM 1.6 mg/dl (1.7-2.5); PHOSPHORUS 1.4 mg/dl (2.5-4.9); SODIUM 135 mmol/L (135-144)
[2018-03-08 06:02] LABS: ALANINE AMINOTRANSFERASE 274 IU/L (13-69); ALBUMIN 2.2 g/dl (3.3-4.9); ALBUMIN/GLOBULIN RATIO 0.81; ALKALINE PHOSPHATASE 247 IU/L (42-121); ANION GAP 16 (8-16); ASPARTATE AMINO TRANSFERASE 68 IU/L (15-46); BILIRUBIN,INDIRECT 0.2 mg/dl (0-1.1); BILIRUBIN,TOTAL 0.2 mg/dl (0.2-1.3); BLOOD UREA NITROGEN 5 mg/dl (7-20); CARBON DIOXIDE 21 mmol/L (21-31); CHLORIDE 102 mmol/L (97-110); CREATININE 0.37 mg/dl (0.44-1.00); GLUCOSE 105 mg/dl (70-220); POTASSIUM 3.8 mmol/L (3.5-5.1); SODIUM 135 mmol/L (135-144); TOTAL PROTEIN 4.9 g/dl (6.1-8.1)
[2018-03-08] MEDS: ONDANSETRON 4 MG INJ IV (07:50)
[2018-03-08] MEDS: FAMOTIDINE 20 MG INJ IV ×2 (07:50→22:09)
[2018-03-08] MEDS: PANTOPRAZOLE 40 MG INJ IV (07:50)
[2018-03-08] MEDS: HYDROCORTISONE 100 MG INJ IV ×3 (07:50→22:11)
[2018-03-08] MEDS: BALSAM PERU/CASTOR OIL 60 GM TUBE TOP ×2 (07:51→22:10)
[2018-03-08] MEDS: ACCU-CHEK XX ×3 (07:51→17:51)
[2018-03-08] MEDS: morphine 2 MG INJ IV ×3 (07:51→21:31)
[2018-03-08] MEDS: MEGESTROL (40 MG/ML) 10ML CUP PO (07:51)
[2018-03-08] MEDS: ENOXAPARIN 30 MG/0.3 ML SYG SC (09:20)
[2018-03-08] MEDS: MAGNESIUM SULFATE 2 GM/50 ML 50 ML IVPB (13:30)
[2018-03-08] MEDS: CASPOFUNGIN 35 MG in SOD CHLORIDE 0.9% 250 ML IVPB (13:31)
[2018-03-08] MEDS: POTASSIUM PHOSPHATE 30 MM in SOD CHLORIDE 0.9% 250 ML IVPB (13:31)
[2018-03-08] MEDS: CEFEPIME 1GM/50 ML (PMX) 50 ML IVPB ×2 (13:35→22:09)
[2018-03-09] MEDS: DEXTROSE 10% 1,000 ML IV ×3 (00:25→09:46)
[2018-03-09] MEDS: morphine 2 MG INJ IV ×6 (00:36→23:32)
[2018-03-09] MEDS: PANTOPRAZOLE 40 MG INJ IV (05:22)
[2018-03-09] MEDS: HYDROCORTISONE 100 MG INJ IV ×3 (05:22→22:10)
[2018-03-09 06:09] LABS: ADD MAN DIFF? NO
[2018-03-09 06:35] LABS: MAGNESIUM 1.8 mg/dl (1.7-2.5)
[2018-03-09 06:35] LABS: PHOSPHORUS 2.2 mg/dl (2.5-4.9)
[2018-03-09] MEDS: ACCU-CHEK XX ×3 (07:20→18:01)
[2018-03-09 07:48] LABS: ANION GAP 14 (8-16); BLOOD UREA NITROGEN 9 mg/dl (7-20); CARBON DIOXIDE 21 mmol/L (21-31); CHLORIDE 103 mmol/L (97-110); CREATININE 0.38 mg/dl (0.44-1.00); GLUCOSE 111 mg/dl (70-220); POTASSIUM 5.2 mmol/L (3.5-5.1); SODIUM 133 mmol/L (135-144)
[2018-03-09] MEDS: BALSAM PERU/CASTOR OIL 60 GM TUBE TOP ×2 (08:22→21:34)
[2018-03-09] MEDS: MEGESTROL (40 MG/ML) 10ML CUP PO (08:22)
[2018-03-09] MEDS: FAMOTIDINE 20 MG INJ IV ×2 (08:23→21:33)
[2018-03-09] MEDS: CEFEPIME 1GM/50 ML (PMX) 50 ML IVPB ×2 (08:30→21:33)
[2018-03-09] MEDS: ENOXAPARIN 30 MG/0.3 ML SYG SC (08:33)
[2018-03-09 09:28] LABS: ABNORMAL IP MESSAGE 1; BASOPHILS % 0.1 % (0.0-2.0); HEMATOCRIT 25.4 % (37.0-47.0); HEMOGLOBIN 8.4 g/dl (12.0-16.0); LYMPHOCYTES # 0.5 10^3/ul (0.8-2.9); LYMPHOCYTES % 6.1 % (15.0-51.0); MEAN CORPUSCULAR HEMOGLOBIN 26.1 pg (29.0-33.0); MEAN CORPUSCULAR HGB CONC 33.1 g/dl (32.0-37.0); MEAN CORPUSCULAR VOLUME 78.9 fl (82.0-101.0); MEAN PLATELET VOLUME 11.2 fl (7.4-10.4); MONOCYTE # 0.6 10^3/ul (0.3-0.9); MONOCYTES % 6.8 % (0.0-11.0); NEUTROPHIL # 6.8 10^3/ul (1.6-7.5); NEUTROPHILS % 84.9 % (39.0-77.0); NUCLEATED RED BLOOD CELLS # 0.1 10^3/ul (0.0-0.0); NUCLEATED RED BLOOD CELLS% 0.7 /100WBC (0.0-0.0); PLATELET COUNT 191 10^3/UL (140-415); RED BLOOD COUNT 3.22 10^6/ul (4.20-5.40); RED CELL DISTRIBUTION WIDTH 19.1 % (11.5-14.5)
[2018-03-09 09:28] LABS: WHITE BLOOD COUNT 8.1 10^3/ul (4.8-10.8)
[2018-03-09 09:31] LABS: POSITIVE DIFF @See below
[2018-03-09] MEDS: NA POLYST SULFON 15 GM/60 ML BTL PO (10:47)
[2018-03-09] MEDS: LORAZEPAM 2 MG INJ IV (11:32)
[2018-03-09] MEDS: DEXTROSE 10% 500 ML IV ×3 (11:36→16:28)
[2018-03-09] MEDS ORDERED: DEXTROSE 10% 250 ML IV (12:30)
[2018-03-09] MEDS: DEXTROSE 10% 250 ML IV ×7 (14:13→23:27)
[2018-03-09] MEDS: CASPOFUNGIN 35 MG in SOD CHLORIDE 0.9% 250 ML IVPB (14:27)
[2018-03-09] MEDS ORDERED: VITAMIN A & D 5 GM OINT PACKET TOP (21:57)
[2018-03-10] MEDS: DEXTROSE 10% 250 ML IV ×17 (00:28→19:30)
[2018-03-10] MEDS: morphine 2 MG INJ IV ×4 (04:01→18:22)
[2018-03-10] MEDS: HYDROCORTISONE 100 MG INJ IV ×3 (05:24→21:27)
[2018-03-10] MEDS: PANTOPRAZOLE 40 MG INJ IV (05:24)
[2018-03-10] MEDS: LORAZEPAM 2 MG INJ IV ×2 (08:13→20:40)
[2018-03-10] MEDS: MEGESTROL (40 MG/ML) 10ML CUP PO (08:13)
[2018-03-10] MEDS: FAMOTIDINE 20 MG INJ IV ×2 (08:13→20:25)
[2018-03-10] MEDS: BALSAM PERU/CASTOR OIL 60 GM TUBE TOP ×2 (08:14→20:40)
[2018-03-10] MEDS: ENOXAPARIN 30 MG/0.3 ML SYG SC (08:15)
[2018-03-10] MEDS: ACCU-CHEK XX ×3 (08:16→17:40)
[2018-03-10] MEDS: CEFEPIME 1GM/50 ML (PMX) 50 ML IVPB ×2 (08:35→20:25)
[2018-03-10] MEDS: CASPOFUNGIN 35 MG in SOD CHLORIDE 0.9% 250 ML IVPB (14:25)
[2018-03-10 15:02] LABS: ANION GAP 14 (8-16); BLOOD UREA NITROGEN 9 mg/dl (7-20); CARBON DIOXIDE 20 mmol/L (21-31); CHLORIDE 99 mmol/L (97-110); CREATININE 0.44 mg/dl (0.44-1.00); GLUCOSE 118 mg/dl (70-220); POTASSIUM 4.8 mmol/L (3.5-5.1); SODIUM 128 mmol/L (135-144)
[2018-03-10] MEDS: DEXTROSE 5%-0.45% NACL 1,000 ML IV (20:00)
[2018-03-10 21:27] LABS: ADD UMIC YES; UR ASCORBIC ACID NEGATIVE (NEGATIVE); UR BACTERIA FEW /HPF (NONE SEEN); UR BILIRUBIN (Dip) NEGATIVE (NEGATIVE); UR BLOOD (Dip) 3+ mg/dL (NEGATIVE); UR CLARITY SLIGHTLY CLOUDY (CLEAR); UR COLOR YELLOW (YELLOW); UR GLUCOSE (Dip) NEGATIVE (NEGATIVE); UR KETONES (Dip) NEGATIVE (NEGATIVE); UR LEUKOCYTE ESTERASE (Dip) 3+ Leu/ul (NEGATIVE); UR NITRITE (Dip) NEGATIVE (NEGATIVE); UR RBC 1 /HPF (0-5); UR SPECIFIC GRAVITY (Dip) 1.001 (1.003-1.030); UR TOTAL PROTEIN (Dip) NEGATIVE (NEGATIVE); UR UROBILINOGEN (Dip) NEGATIVE (NEGATIVE); UR WBC 8 /HPF (0-5)
[2018-03-11] MEDS: DEXTROSE 5%-0.45% NACL 1,000 ML IV ×3 (00:57→10:30)
[2018-03-11] MEDS: morphine 2 MG INJ IV ×3 (02:24→12:00)
[2018-03-11] MEDS: HYDROCORTISONE 100 MG INJ IV ×2 (05:50→14:48)
[2018-03-11] MEDS: PANTOPRAZOLE 40 MG INJ IV (05:50)
[2018-03-11 05:52] LABS: ADD MAN DIFF? NO
[2018-03-11 05:56] LABS: WHITE BLOOD COUNT 9.4 10^3/ul (4.8-10.8)
[2018-03-11 05:56] LABS: ABNORMAL IP MESSAGE 1; BASOPHILS % 0.1 % (0.0-2.0); HEMATOCRIT 25.2 % (37.0-47.0); HEMOGLOBIN 8.3 g/dl (12.0-16.0); LYMPHOCYTES # 0.5 10^3/ul (0.8-2.9); LYMPHOCYTES % 5.5 % (15.0-51.0); MEAN CORPUSCULAR HGB CONC 32.9 g/dl (32.0-37.0); MEAN PLATELET VOLUME 11.6 fl (7.4-10.4); MONOCYTE # 0.6 10^3/ul (0.3-0.9); MONOCYTES % 6.2 % (0.0-11.0); NEUTROPHILS % 85.4 % (39.0-77.0); NUCLEATED RED BLOOD CELLS # 0.2 10^3/ul (0.0-0.0); NUCLEATED RED BLOOD CELLS% 1.7 /100WBC (0.0-0.0); PLATELET COUNT 163 10^3/UL (140-415); RED BLOOD COUNT 3.19 10^6/ul (4.20-5.40); RED CELL DISTRIBUTION WIDTH 19.2 % (11.5-14.5)
[2018-03-11 06:31] LABS: ANION GAP 16 (8-16); BLOOD UREA NITROGEN 9 mg/dl (7-20); CALCIUM 7.2 mg/dl (8.4-10.2); CARBON DIOXIDE 19 mmol/L (21-31); CHLORIDE 104 mmol/L (97-110); CREATININE 0.54 mg/dl (0.44-1.00); GLUCOSE 69 mg/dl (70-220); POTASSIUM 4.6 mmol/L (3.5-5.1); SODIUM 134 mmol/L (135-144)
[2018-03-11 06:51] LABS: POSITIVE DIFF @See below
[2018-03-11 07:07] LABS: MAGNESIUM 1.6 mg/dl (1.7-2.5); PHOSPHORUS 1.9 mg/dl (2.5-4.9)
[2018-03-11] MEDS: ACCU-CHEK XX ×3 (07:20→11:10)
[2018-03-11] MEDS: FAMOTIDINE 20 MG INJ IV (08:36)
[2018-03-11] MEDS: ENOXAPARIN 30 MG/0.3 ML SYG SC (08:37)
[2018-03-11] MEDS: BALSAM PERU/CASTOR OIL 60 GM TUBE TOP ×2 (08:41→21:31)
[2018-03-11] MEDS: CEFEPIME 1GM/50 ML (PMX) 50 ML IVPB (08:41)
[2018-03-11] MEDS: MEGESTROL (40 MG/ML) 10ML CUP PO (08:59)
[2018-03-11] MEDS: DEXTROSE 50% 50 ML SYRINGE IV (12:35)
[2018-03-11] MEDS: DEXTROSE 10% 1,000 ML IV ×3 (12:53→20:46)
[2018-03-11] MEDS: CASPOFUNGIN 35 MG in SOD CHLORIDE 0.9% 250 ML IVPB (14:59)
[2018-03-11] MEDS ORDERED: ALTEPLASE (CATHFLO) 2 MG INJ CATHETER (15:30)
[2018-03-11] MEDS ORDERED: LORAZEPAM 2 MG INJ IV (17:00)
[2018-03-11] MEDS ORDERED: morphine (DRIP) 100 MG/100 ML 100 ML IV (17:30)
[2018-03-11] MEDS ORDERED: ACETAMINOPHEN 650 MG SUPP PR (17:30)
[2018-03-11] MEDS ORDERED: ATROPINE 1% 5 ML OPH SL (18:30)
[2018-03-11] MEDS: morphine (DRIP) 100 MG/100 ML 100 ML IV (20:48)
[2018-03-12] MEDS: DEXTROSE 10% 1,000 ML IV ×2 (07:29→18:52)
[2018-03-12] MEDS: BALSAM PERU/CASTOR OIL 60 GM TUBE TOP ×2 (09:13→21:17)
[2018-03-12] MEDS: DIMETHICONE STICK TOP (11:58)
[2018-03-12] MEDS: ARTIFICIAL TEARS 15 ML OPH BOTH EYES (11:59)
== END 2018-03-13 00:55 | disposition expired | DRG 754 ==
LOC: ICU 03-04 05:03 → MS1 03-08 14:27 → E/R 08:04 → MS1 03-08 14:30 → MS4 13:43
PROVIDERS: Internal Medicine
PROC: 0W9B3ZX Drainage of Left Pleural Cavity, Percutaneous Approach, Diagnostic (ICD-10-PCS; 2018-03-01)
PROC: 02HV33Z Insertion of Infusion Device into Superior Vena Cava, Percutaneous Approach (ICD-10-PCS; principal; 2018-03-04)
DX: C56.9 Malignant neoplasm of unspecified ovary (principal); E43 Unspecified severe protein-calorie malnutrition; G92 Toxic encephalopathy; N39.0 Urinary tract infection, site not specified; C79.9 Secondary malignant neoplasm of unspecified site; Z68.1 Body mass index [BMI] 19.9 or less, adult; C78.7 Secondary malignant neoplasm of liver and intrahepatic bile duct; C78.6 Secondary malignant neoplasm of retroperitoneum and peritoneum; J91.0 Malignant pleural effusion; R64 Cachexia; R18.0 Malignant ascites; N13.30 Unspecified hydronephrosis; B37.49 Other urogenital candidiasis; E87.1 Hypo-osmolality and hyponatremia; D68.59 Other primary thrombophilia; R65.10 Systemic inflammatory response syndrome (SIRS) of non-infectious origin without acute organ dysfunction; E11.649 Type 2 diabetes mellitus with hypoglycemia without coma; R14.0 Abdominal distension (gaseous); D64.9 Anemia, unspecified; E87.6 Hypokalemia; K72.90 Hepatic failure, unspecified without coma; E16.1 Other hypoglycemia; I95.9 Hypotension, unspecified; E83.39 Other disorders of phosphorus metabolism; E83.42 Hypomagnesemia; R62.7 Adult failure to thrive; Z91.19 Patient's noncompliance with other medical treatment and regimen; Z96.0 Presence of urogenital implants; Z74.09 Other reduced mobility; Z51.5 Encounter for palliative care; Z66 Do not resuscitate
CPT/HCPCS: 36415; 36569; 70450; 71045; 71260; 73030; 74177; 76937; 76942; 80048; 80053; 81001; 82140; 82533; 82945; 82947; 82962; 83605; 83615; 83690; 83735; 84100; 84132; 84157; 84443; 84484; 85025; 85610; 85730; 86304; 86850; 86900; 86901; 87040; 87070; 87081; 87086; 87102; 87116; 88104; 88305; 88341; 88342; 89051; 93005; 93306; 96365; 96368; 96375; 96376; 99285-25